=== PATIENT | male | born 1965 | race Caucasian/White ===

== ENCOUNTER → 2017-01-02 | Outpatient (CLI) | payer OTHER ==
[~2017-01-02] MED LIST: BUPAP1 TAB; LEVOTHYROXINE0.1 M1; LORTAB 5/500 501 TAB PO; OMEPRAZOLE40 MG PO; VERAPAMIL HCL180 MG
[2017-01-02 17:26] LABS: HEMOGLOBIN 17.2 g/dL (14.1-18.0); LYMPH # 2.4 K/mm3 (0.7-4.5); LYMPH % 17.9 % (10-50)
[2017-01-02 21:21] LABS: BUN 17 mg/dL (7-18)
[2017-01-02 21:42] LABS: GFR (ESTIMATED) 79 ML/MIN (>60)
[2017-01-03 15:37] LABS: NEUTROPHILS 72 % (42-76)
== END ==
LOC: LAB 16:20
PROVIDERS: Internal Medicine Adolescent Medicine
DX: D72.829 Elevated white blood cell count, unspecified (principal)